=== PATIENT | male | born 1955 | race Caucasian/White ===

== ENCOUNTER → 2019-03-03 12:26 | Outpatient (CLI) | payer OTHER, SELFPAY ==
--- NOTE | 2019-03-03 | DI.MRI.S_ITS ---
PROCEDURE: MR CERVICAL SPINE WO CON INDICATIONS: Cervicalgia TECHNIQUE: Noncontrast sagittal T1 spin echo and T2 fast spin echo, sagittal STIR, foraminal oblique sagittal T2 fast spin echo, and axial gradient echo and T2 fast spin echo through the cervical spine. COMPARISON: None. FINDINGS: Image quality: Diagnostic Alignment and Curvature: There is normal bony alignment. Bone Marrow: Marrow demonstrates normal overall signal. Spinal Cord: Visualized spinal cord has normal size and signal. No cerebellar tonsillar herniation. Paraspinous Soft Tissues: No paravertebral masses. Prevertebral soft tissues are normal in thickness. C2-C3: The disc height and disk signal are well-preserved. A mild degree of generalized disc osteophyte complex is seen. [id number] bilateral neural foraminal narrowing is seen. Mild central canal narrowing is seen. C3-C4: Mild loss of disc height is seen. Loss of disc signal is seen. Mild to moderate disc osteophyte complex is seen, with a central/left disc osteophyte protrusion, as on series 3 image 16. Moderate facet joint hypertrophy is seen. Moderate to severe bilateral neural foraminal narrowing is seen. Moderate central canal narrowing is seen, with associated mass effect upon the ventral spinal cord. C4-C5: Postoperative changes are seen anteriorly at this level, with associated susceptibility artifact. Moderate generalized disc osteophyte complex is seen. Moderate to severe bilateral right-sided and moderate left-sided neural foraminal narrowing can be seen. Mild central canal narrowing is seen. C5-C6: Mild loss of disc height is seen. Loss of disc signal is seen. Moderate disc osteophyte complex is seen, which is eccentric to the left. There is a central/left disc osteophyte protrusion seen. Mild facet joint hypertrophy is seen. Moderate bilateral neural foraminal narrowing is seen. Mild central canal narrowing is seen. C6-C7: The disc height and disc signal are relatively well-preserved. No significant disc bulge is seen. There is moderate to severe right-sided and moderate left-sided neural foraminal narrowing seen. No significant central canal narrowing is seen. C7-T1: No significant abnormality is seen. IMPRESSION: Anterior fixation hardware at C4-C5. Degenerative changes are seen, which are most prominent at the C3-C4 level, where there is a central/left disc osteophyte protrusion seen. Moderate central canal narrowing and moderate to severe bilateral neural foraminal narrowing are seen at this level. Dictated by: Richard Guerra M.D. on 03/03/2019 at 13:30 Approved by: Richard Guerra M.D. on 03/03/2019 at 13:35
== END ==
PROVIDERS: Family Provider Internal Medicine; PCP Internal Medicine; Visit Provider Physical Medicine & Rehabilitation
DX: M47.812 Spondylosis without myelopathy or radiculopathy, cervical region (principal); M48.02 Spinal stenosis, cervical region; M54.2 Cervicalgia
CPT/HCPCS: 72141